=== PATIENT | male | born 1980 | race Caucasian/White ===

== ENCOUNTER 2016-11-03 08:37 | Emergency (ER) | payer MEDICAID ==
[~2016-11-03] VITALS: Ht 172.7 cm; Wt 113.6 kg
[2016-11-03 08:57] VITALS: BP 167/109
[2016-11-03] MEDS ORDERED: PROPARACAINE HCL 0.5% 15 ML OPHTHALMIC SOLUTION OS ONE (09:15)
== END 2016-11-03 09:46 | disposition home or self-care (01) ==
LOC: EMS 08:39
DX: H16.8 Other keratitis (principal); F17.210 Nicotine dependence, cigarettes, uncomplicated
CPT/HCPCS: 99283